=== PATIENT | female | born 1995 | race Caucasian/White ===

== ENCOUNTER 2020-09-13 22:15 | Emergency (ER) | payer OTHER ==
[~2020-09-13] VITALS: Ht 160 cm; Wt 95.3 kg
[2020-09-13 23:04] VITALS: Ht 160 cm; Wt 95.3 kg
[2020-09-13 23:20] LABS: BASOPHIL % 0.9 % (0.2-1.3); PLATELET COUNT 316 x10^3mcL (179-408)
[2020-09-13 23:22] LABS: RED CELL DISTRIBUTION WIDTH 14.6 % (12.3-17.7)
[2020-09-13 23:27] LABS: CALCIUM 9.1 mg/dL (8.5-10.1); CARBON DIOXIDE 27.7 mmol/L (21-32); CHLORIDE SERUM 104 mmol/L (98-107); CREATININE SERUM 1.1 mg/dL (0.6-1.0); GFR1 > 60 mL/min; GLUCOSE SERUM 101 mg/dL (74-106); POTASSIUM SERUM 3.6 mmol/L (3.5-5.1); SODIUM SERUM 140 mmol/L (136-145)
[2020-09-13 23:32] LABS: ALBUMIN 3.8 g/dL (3.4-5.0); ALKALINE PHOSPHATASE 83 U/L (46-116); ALT/SGPT 32 U/L (14-59); AST/SGOT 21 U/L (15-37); BILIRUBIN TOTAL 0.25 mg/dL (0.20-1.00); TOTAL PROTEIN, SERUM 8.1 g/dL (6.4-8.2)
[2020-09-14 01:20] VITALS: BP 113/47
== END 2020-09-14 02:06 | disposition home or self-care (01) ==
LOC: ED 22:15
PROVIDERS: Emergency Medicine
DX: R56.9 Unspecified convulsions (principal); F41.9 Anxiety disorder, unspecified
CPT/HCPCS: G0480; J2060